=== PATIENT | male | born 1960 | race Caucasian/White ===

== ENCOUNTER 2021-10-06 06:46 | Outpatient (CLI) | payer MEDICARE, SELFPAY ==
--- NOTE | 2021-10-06 07:02 | ECG_ITS ---
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 Interpretive Statements NAME OF STUDY: LEXISCAN SESTAMIBI STRESS TEST INDICATION: Chest Pain PROCEDURE: At the baseline, the blood pressure was 172/107 mmHg with a heart rate of 70 beats per minute. The electrocardiogram showed normal sinus rhythm, left axis deviation. Possible old anterior infarct. The Lexiscan was infused over a period of 20 seconds. A total of 0.4 milligrams of Lexiscan was infused. The stress phase was continued for a total of 5 minutes. Heart rate at the end of the stress phase was 99 bpm with a blood pressure of 165/107 mmHg. The EKG at the peak infusion revealed sinus rhythm with no significant ST-T wave changes. The study was terminated due to protocol completion. Sestamibi was injected 20 seconds after the Lexiscan infusion. Blood pressure at the end of the recovery phase was 168/105 mmHg with a heart rate of 80 beats per minute. Isolated PVCs noted in recovery. CONCLUSION: 1. No significant EKG changes with the LexiScan infusion. 2. No LexiScan induced chest pain or cardiac arrhythmia. 3. Baseline hypertension with normal blood pressure and heart rate response. 4. Sestamibi/sestamibi perfusion scan pending; see separate report. Electronically Signed On 10-06-2021 17:37:05 CDT by Eliz Dahl M.D. [id number]
--- NOTE | 2021-10-06 07:03 | NMCV_ITS ---
NM perlita perf SPECT r/s* [id number] Tnezin Aponte Age: 61 Gender: M : 1960 Exam Date: 10/06/2021 08:33 Ordering Phys: Jose F Kingston MD ([email or web address]) Technologist: IMANI Stewart Exam Location: [facility] Indications: CHEST PAIN STRESS TEST Please see separate stress test report in [facility] for full findings IMAGE PROTOCOL Rest/Stress 1 Lexiscan Day Radiopharmaceutical Dose (mCi) Administration Site Administered by Rest: Tc-99m 10.8 IV IMANI Robins Sestamibi Stress:Tc-99m 33.0 IV IMANI Stewart Sestamirosa elena Rest: 06-Oct-2021 60 Discovery 630 Stress: 06-Oct-2021 30 Discovery 630 0.4mg Lexiscan. Supine position only as patient was unable to lay prone. SPECT RESULTS Technical Quality: Excellent Raw Data Analysis: Normal Image Corrections: No attenuation or motion correction applied Summed Stress Score: 5 Summed Rest Score: 7 Summed Difference Score: 1 PERFUSION FINDINGS Small sized perfusion abnormality of mild severity of mid to apical anterior, mid to apical anteroseptal and apical lateral wall on rest images with some reversibility in apical anterior and apical st on stress images. FUNCTIONAL RESULTS (calculated via Gated SPECT) Stress Image LV EF (%): 33 Stress EDV (mL):155 TID: 0.97 Stress ESV (mL):104 FUNCTIONAL FINDINGS: The left ventricle is dilated. Transient Ischemia Dilatation of 0.97. The left ventricular ejection fraction is moderately reduced with a value of 33%. There is hypokinesis of apical anterior and apical st. Abnormal septal motion. Increase end-diastolic end-systolic volumes. IMPRESSIONS 1. Small sized perfusion abnormality mid to apical anterior, mid to apical anteroseptal and apical lateral st. 2. This may represent old myocardial infarction in left anterior descending artery territory with mild gonsalo-infarct ischemia. 3. The left ventricular ejection fraction is moderately reduced with a value of 33%. 4. There is hypokinesis of apical anterior and apical st. Abnormal septal motion. 5. EKG portion of the study will be reported separately. 6. No prior similar studies to compare. Eliz Dahl MD (Electronically Signed) Final Date: 06 October 2021 13:28 S
[2021-10-06 08:14] VITALS: BMI 30.4
[2021-10-06] MEDS: ondansetron 2 mg/ML SDV 2 mL 4 MG IVP (09:29)
[2021-10-06] MEDS: regadenoson 0.4 Mg/5 ml Syringe IVP (09:29)
[2021-10-06] MEDS: aminophylline 25 mg/mL SDV 10 mL IVP (09:44)
[2021-10-06 10:36] VITALS: BP 168/103; PULSE 79
== END 2021-10-06 06:47 | disposition home or self-care (01) ==
LOC: CDL 06:48
PROVIDERS: Family Provider Nurse Practitioner Family; PCP Nurse Practitioner Family; Visit Provider Internal Medicine Cardiovascular Disease
DX: R07.9 Chest pain, unspecified (principal)
CPT/HCPCS: 78452; 93017; A9500; J0280; J2405; J2785

== ENCOUNTER → 2021-10-12 08:57 | Outpatient (BNVA) | payer MEDICARE, SELFPAY | PROVIDERS: Family Provider Nurse Practitioner Family; PCP Nurse Practitioner Family; Visit Provider Nurse Practitioner Family | DX: R94.39 Abnormal result of other cardiovascular function study (principal); I10 Essential (primary) hypertension; Z95.5 Presence of coronary angioplasty implant and graft; F17.210 Nicotine dependence, cigarettes, uncomplicated; I25.10 Atherosclerotic heart disease of native coronary artery without angina pectoris | CPT/HCPCS: 80048; 83880; 85025; 85610; 93005; 99214 ==

== ENCOUNTER 2021-10-20 05:56 | Outpatient (CLI) | payer MEDICARE, SELFPAY ==
[2021-10-18 11:04] LABS: Basophils % 0.2 %; Eosinophils # 0.4 10^3/uL (0.0-0.8); Eosinophils % 3.9 %; Hematocrit 49.8 % (42.0-52.0); Hemoglobin 17.6 g/dL (11.7-16.6); Lymphocytes # 2.5 10^3/uL (0.8-4.8); Lymphocytes % 26.8 %; Mean Corpuscular HGB Conc 35.3 g/dL (30.0-36.0); Mean Corpuscular Hemoglobin 31.8 pg (28.0-34.0); Mean Corpuscular Volume 89.9 fl (80-94); Mean Platelet Volume 9.1 fL (7.4-10.4); Monocytes # 0.3 10^3/uL (0.2-0.9); Monocytes % 3.7 %; Neutrophils # 5.93 10^3/uL (1.8-7.7); Neutrophils % 65.1 %; Nucleated Red Blood Cells % 0 %; Platelet Count 218 10^3/cmm (130-400); Red Blood Count 5.54 10^6/uL (4.1-5.3); Red Cell Distribution Width 12.7 % (12.1-15.1); White Blood Count 9.1 10^3/uL (4.0-10.0)
[2021-10-18 11:21] LABS: INR 0.93 (0.83-1.21); Prothrombin Time (Patient) 12.8 Seconds (12.0-15.1)
[2021-10-18 11:22] LABS: Anion Gap 14.7 (5-19); Blood Urea Nitrogen 13 mg/dL (8-23); Calcium 9.8 mg/dL (8.5-10.5); Carbon Dioxide 26 mmol/L (22-29); Chloride 103 mmol/L (98-107); Glomerular Filtration Rate 97.6 mL/min (90-130); Glucose 130 mg/dL (65-115); Osmolality Calculated 292 mOsm/kg (285-295); Potassium 3.7 mmol/L (3.5-5.1); Sodium 140 mmol/L (136-145)
[2021-10-20] VITALS (16 sets, daily range): BP systolic 120–180; BP diastolic 87–126; PULSE 65–80; RESP 13–19; TEMP 36.4; O2SAT 98; BMI 30.2
--- NOTE | 2021-10-20 06:00 | XACV_ITS ---
Exam Room: 2 Ht: 173 cm Wt: 90 kg BSA: 2.11 m2 Gender: Male : 1960 Any Known Allergies: Other Exam Priority: Routine Procedure(s): Procedure Description: Diagnostic procedure Procedure Description: Left Heart Catheterization Procedure Description: Left ventriculography Procedure Description: Coronary Angiography Procedure Description: Pressure Wire Diagnostic Cath Status: Elective Diagnostic Findings * Mid Left Anterior Descending to Distal Left Anterior Descending: moderate 50% stenosis, MARISA: 3 flow. Patent prior stents. * Mid Circumflex: moderate 60% stenosis, MARISA: 3 flow. * INDICATION: Chest pain/abnormal stress test. * Left Main has no disease. * Right Coronary Artery has no disease. * Coronary angiography shows right dominance. Interventional Findings * PROCEDURE DETAIL: We engaged the left main artery with XB 3.5 guide to catheter. IV heparin was administered to maintain ACT above 250 S. After normalization IFR wire was advanced to distal left circumflex artery. Nonischemic IFR value of 0.97 was obtained. We then turned our attention to the mid LAD stenosis. iFR was performed in the LAD and was also found to be nonischemic. FFR wire was removed and final angiogram was performed. Guide catheter was removed and patient left the Coin Teller in a stable condition.. Conclusions 1. Moderate mid left circumflex and mid LAD stenosis. iFR 2. nonischemic for both vessels.. 3. Moderate left ventricular systolic dysfunction. Ejection fraction of 35%. Recommendations * Aggressive risk factor modification. * Outpatient cardiology follow-up in 4 weeks. Interventional RX Recommendation: medical therapy and/or counseling Diagnostic RX Recommendation: medical therapy and/or counseling Anticoagulation: Heparin Ventriculography Ejection Fraction: 35.0 % Pressures Phase:Rest AO : 144 / 96 ( 117 ) @ 8:58:00 AM 157 / 96 ( 121 ) @ 9:06:00 AM 162 / 98 ( 124 ) @ 9:08:00 AM 164 / 96 ( 124 ) @ 9:15:00 AM 175 / 104 ( 134 ) @ 9:21:00 AM 176 / 84 ( 126 ) @ 9:21:00 AM LV : 170 / 2 / 22 @ 9:20:00 AM 175 / 6 / 28 @ 9:21:00 AM 174 / 5 / 27 @ 9:21:00 AM Valves Phase:DefaultPhase AV : 0.0 @ 8:28:07 AM AV Mean Gradient: 0.0 @ 8:28:07 AM Clinical Evaluation EBL: 5mL-10mL Procedural Details Procedure Consent Obtained. Pre-Procedure Time Out. Identified patient by full name and date of as verbalized by the patient/guarantor. Does the consent match the physician's order: Yes. Accurate & Complete Informed Consent: Yes. Inpatient/Outpatient History & Physical on Chart: Yes. If H&P is completed, is and addenduem needed: No; If yes, is the addendum complete: N/A. Visualize and Verify Site with Patient/Guarantor: N/A. Relevant Radiology Images available: Yes. Pre-op teaching completed and patient verbalized understanding. The risks, benefits, and alternatives of sedation and/or procedure were discussed by physician. The patient agrees to continue. Procedure started. Current Diagnosis : Chest Pain. [facility] Clinical Fraility Score: 3: Managing Well. Coin Teller Indications: Worsening Angina. Chest Pain Symptom Assessment: Typical Angina Symptoms. Correct patient, site and procedure confirmed by cath team. Current diagnosis: Chest Pain. PERRLA. Strong, equal hand jewelry appraiser bilaterally. Lungs clear x 5 lobes. IV Site on Arrival: 20 gauge in the left anticubital. IV Fluids: 0.9% NaCl at KVO. 0 mL infused prior to labor law professor. Pre Procedural Pulses: bilateral dorsalis pedis was 3+. Pre Procedural Pulses: bilateral posterior tibial was 1+. Pre Procedural Pulses: bilateral radial was 3+. Oxygen started at 2liters/min via nasal canula. right groin was prepped with chloroprep then draped in the usual sterile fashion. right radial was prepped with chloroprep then draped in the usual sterile fashion. Physician notified. Baseline sample Acquired. HR: 69 BPM. Physician arrived. Physician scrubbed in. Immediate Pre-Procedure Time Out. Correct Patient: Yes; Correct Procedure: Yes; Correct Site: Yes; Correct Patient Position: Yes; Correct Supplies: Yes; Dried Flammable Prep: Yes; Blood Products Available: N/A;. Lidocaine 1% infiltrated to the right radial. Arterial access obtained. A 5 wolof TIG catheter in over wire. Wire out. Glidewire inserted through the catheter. Wire out. Multiple views taken of left coronary artery. Catheter redirected to the RCA. Multiple views taken of right coronary artery. Catheter removed over the glide wire. 6 wolof XB 3.5 guide catheter was inserted over the wire. IFR guidewire was advanced through the guide catheter to lesion in the mid Circ. Results: 0.97. Wire redirected to the Mid LAD. wire out. IFR guidewire was advanced through the guide catheter to lesion in the mid LAD. Wire out. A 5 wolof Angled Pig catheter in over wire. EDP Sample taken: LV 170/2,22; HR: 76 BPM; SpO2: 99%. LV gram performed in NESS @ 10 mL/second for a total of 30 mL. EDP Sample taken: LV 175/6,28; HR: 74 BPM; SpO2: 99%. Pullback taken: LV 174/5,27; AO 175/104(134); Mean: 0mmHg, Peak to Peak: 0mmHg, SEP: 6sec/min; HR: 75 BPM; SpO2: 99%. A TR Band was successful obtaining hemostatsis at the Right Radial artery insertion site. Post Procedure: Pulses reassessed and unchanged. PERRLA. Strong, equal hand jewelry appraiser bilaterally. No VTE prophylaxis required. Medication's Wasted: Lidocaine 1% = 8 mL. Medication's Wasted: Nitro = 49.8 mg. Medication's Wasted: Heparin = 3000 units. Total IV fluids: 51.2 mL. Contrast type used: Omnipaque 300 mgI/mL, 500 mL bottle. Complications: None. Vital chart was stopped. Estimated blood loss: 5mL-10mL. Responsiveness - Normal response to verbal stimuli; alert and oriented, PERRLA. Airway - Unaffected, no intervention required; spontaneous ventilation. Circulation: W/N/L, pulses unchanged. Nausea/Vomiting: No. Procedure completed. Patient transferred by wheelchair to 1st floor. Access Site Site: Right Radial artery Sheath Size: 6 Fr Hemostasis Method: TR Band Hemostasis Success: Successful Procedure Medications Start: 7:46 AM Stop: 7:46 AM Medication: Versed Amount: 1 mg Route: I.V. Start: 7:48 AM Stop: 7:48 AM Medication: Fentanyl Amount: 50 mcg Route: I.V. Start: 7:52 AM Stop: 7:52 AM Medication: Nitrogylcerin Amount: 200 mcg Route: I.A. Start: 7:56 AM Stop: 7:56 AM Medication: Heparin Amount: 5000 units Route: I.V. Start: 8:04 AM Stop: 8:04 AM Medication: Heparin Amount: 3000 units Route: I.V. Start: 8:12 AM Stop: 8:12 AM Medication: Versed Amount: 1 mg Route: I.V. I, the attending physician, have reviewed and verified all procedure medications. Yes, all medications given per verbal order History/Risk Factors Hypertension: Yes Dyslipidemia: Yes Peripheral Arterial Disease (PAD): No Myocardial Infarction (AL): Yes Obesity: No Renal Disease: No Prior Interventions PCI: Yes CABG: No Valve Surgery: No Report Signatures Finalized by Mitch Jackson MD on 11/01/2021 09:15 PM
[2021-10-20] MEDS: diphenhydrAMINE 50 mg Capsule PO (06:20)
--- NOTE | 2021-10-20 07:35 | W.PM.OPSUD ---
Surgery/Procedure H&P Update DATE OF PROCEDURE: October 20, 2021 DATE H&P PERFORMED: 10/12/21 H&P UPDATE INFORMATION: I have reviewed H&P completed within last 30 days, I have examined patient prior to procedure and No changes to prior documentation PREOP DIAGNOSIS: Chest pain/abnormal stress test PRIMARY INDICATION FOR PROCEDURE: Chest pain/abnormal stress test PLANNED PROCEDURE: Operation Date: 10/20/21 07:00 Proposed Procedures p Cardiac Catheterization(Left) - Mitch Jackson M.D Possible percutaneous coronary intervention PATIENT REASSESSED PRIOR TO SEDATION, WITH NO CHANGE NOTED: Yes PHYSICAL EXAM: alert, oriented x 3, clear to auscultation bilaterally and regular rate & rhythm AIRWAY EVAL/ANESTHESIA PLAN: ASA III, Monitored Anesthesia, Local Anesthesia, Risks, benefits & alternatives of sedation and/or procedure discussed and Patient agrees to continue as planned
[2021-10-20] MEDS: hyDRALAzine 20 mg/mL INJ 1 mL 10 MG IVP (09:22)
[2021-10-20] MEDS: carvedilol 6.25 mg Tablet PO (09:23)
--- NOTE | 2021-10-20 09:46 | PC.NURSE ---
around 0900 patient reported pain at the insertion site this nurse released 2-3 ml of air from TR band to aid in patients pain no change in reported pain call placed to Dr Jackson to report pain and patients elevation in blood pressure provider at bedside with instructions to give 2mg morphine IVP x1 10mg hydralazine IVP x 1 and give home does coreg coreg 6.25 BID provider reviewed plan with patient. patient refuses morphine stated something along the lines of she has just gave me ibuprofen and Tylenol and pointed to family at bedside morphine not ordered instructions to proceed with management of blood pressure plan of care received patient report a decrease in pain at site at this time and blood pressure has stabilized Will continue to monitor and remove TR band per protocol.
--- NOTE | 2021-10-20 10:50 | PC.NURSE ---
spke with provider with concerns of patient blood pressure becoming elevated again at this time instructions received to give PO lisinopril 20mg x1
[2021-10-20] MEDS: lisinopril 10 mg Tablet PO (11:18)
--- NOTE | 2021-10-20 12:37 | PC.NURSE ---
Discharge Note Patient discharged to Home via private vehicle accompanied by spouse. Discharge instructions reviewed with patient and/or sales account representative. Mobile pharmacy medications and/or prescriptions provided. Belongings/home medications returned.
== END 2021-10-20 12:39 | disposition home or self-care (01) ==
LOC: CCL 06:11 → CSU 07:57
PROVIDERS: PCP Nurse Practitioner Family; Visit Provider Internal Medicine
DX: I25.10 Atherosclerotic heart disease of native coronary artery without angina pectoris (principal); I10 Essential (primary) hypertension; E78.5 Hyperlipidemia, unspecified; I25.2 Old myocardial infarction; E78.00 Pure hypercholesterolemia, unspecified; Z95.5 Presence of coronary angioplasty implant and graft; F17.210 Nicotine dependence, cigarettes, uncomplicated
CPT/HCPCS: 36415; 80048; 85025; 85610; 93452; 93458; 93571; 93572; 96360; 99152; 99153; C1769; C1887; C1894; J0360; J1644; J2250; J3010; J3490; J7030; Q0163; Q9967

== ENCOUNTER → 2021-10-28 10:15 | Outpatient (BNVA) | payer MEDICARE, SELFPAY | PROVIDERS: PCP Nurse Practitioner Family; Visit Provider Nurse Practitioner Family | DX: I11.0 Hypertensive heart disease with heart failure (principal); I50.20 Unspecified systolic (congestive) heart failure; Z95.5 Presence of coronary angioplasty implant and graft; F17.210 Nicotine dependence, cigarettes, uncomplicated | CPT/HCPCS: 36415; 80048; 83880; 99214 ==